=== PATIENT | male | born 1990 | race Two or more races ===

== ENCOUNTER 2023-08-09 16:32 | Emergency (ER) | payer OTHER, SELFPAY ==
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
[2023-08-09 16:46] VITALS: BP 146/81; PULSE 85; RESP 18; TEMP 36.6; O2SAT 98; BMI 27.3
[2023-08-09 21:03] VITALS: BP 127/80; PULSE 84; RESP 16; TEMP 36.8; O2SAT 98
[2023-08-09] MEDS: Ketorolac Tromethamine 30 MG/ML VIAL IM (22:04)
[2023-08-09] MEDS: Cyclobenzaprine HCl 10 MG TABLET PO (22:04)
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
[2023-08-09] MEDS: diphenhydrAMINE HCL 50 MG/ML VIAL IM (23:36)
== END 2023-08-09 23:43 | disposition home or self-care (01) ==
PROVIDERS: Emergency Provider Emergency Medicine
DX: G44.319 Acute post-traumatic headache, not intractable (principal); M54.50 Low back pain, unspecified; M54.2 Cervicalgia
CPT/HCPCS: 70450; 72100; 72125; 96372; 99284; J1200; J1885